=== PATIENT | male | born 1995 | race American Indian/Alaskan Native ===

== ENCOUNTER 2021-08-28 14:39 | Emergency (ER) | payer SELFPAY ==
[2021-08-28] MEDS ORDERED: ONDANSETRON 4 MG/2 ML INJ IV ONE (14:52)
[2021-08-28] MEDS ORDERED: SODIUM CHLORIDE 0.9% 500 ML 500 ML IV ONE (14:52)
[2021-08-28] MEDS ORDERED: MORPHINE 4 MG/1 ML INJ IV ONE ×2 (14:52→16:42)
[2021-08-28] MEDS ORDERED: SODIUM CHLORIDE 0.9% IRR 500 ML BOTTLE IR ONE (14:53)
[2021-08-28] MEDS ORDERED: LIDOCAINE 2%/EPINEPHRINE 1:100,000 VIAL (20 ML) INFILTRATI ONE (14:53)
--- NOTE | 2021-08-28 14:54 | Emergency Department Report ---
ED General Adult HPI - General Chief complaint: Multiple Trauma Stated complaint: HEAD INJURY Time Seen by Provider: 08/28/21 14:51 Source: patient, family, RN notes reviewed Mode of arrival: Ambulatory Limitations: Physical Limitation - History of Present Illness Initial comments: The patient is a 26-year-old gentleman. He is not known to myself previously. He presents to the ER with a complaint of pipe injury to the head, while at work. He apparently blacked out afterwards. History obtained from patient and from his mother. 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 Apparently he fell backwards and hit his head. He passed out. Prior to the event, the patient does not have any pain or complaints. The patient complains of frontal headache, neck pain, and nausea and vomiting. He denies weakness and numbness. Code trauma is called overhead based off of mechanism. Airway: Patent and intact Breath sounds: Clear to auscultation bilaterally. Circulation: 2+ pulses noted in the bilateral upper and lower extremities. Blood pressure 120 systolic. Disability: GCS 13-14. Clinically sober. Exposure: No other obvious significant injuries. Secondary survey: Right-sided forehead laceration noted -: Sudden Location: head Consistency: constant Improves with: none Worsens with: none - Related Data Previous Rx's Medication Instructions Recorded Last Taken Type Acetaminophen [Non-Aspirin Extra 500 mg PO Q6HR PRN #30 tablet 08/28/21 Unknown Rx Strength] Fluticasone [Flonase] 1 spray NS QDAY #1 bottle 08/28/21 Unknown Rx Ibuprofen [Motrin] 600 mg PO Q8H PRN #30 tablet 08/28/21 Unknown Rx Ondansetron [Zofran Odt] 4 mg PO Q8HR PRN #20 tab.rapdis 08/28/21 Unknown Rx cephALEXin [Keflex] 500 mg PO Q6HR #20 capsule 08/28/21 Unknown Rx Allergies Allergy/AdvReac Type Severity Reaction Status Date / Time shellfish derived AdvReac Anaphylaxis Verified 08/28/21 14:43 ED Review of Systems ROS: Stated complaint: HEAD INJURY Other details as noted in HPI Constitutional: malaise. denies: fever Eyes: denies: eye discharge ENT: denies: epistaxis Respiratory: denies: cough Cardiovascular: syncope. denies: chest pain Gastrointestinal: nausea, vomiting. denies: abdominal pain Musculoskeletal: myalgia Neurological: headache, weakness. denies: numbness Psychiatric: anxiety ED Past Medical Hx - Medications Home Medications: Home Medications Medication Instructions Recorded Confirmed Last Taken Type Acetaminophen [Non-Aspirin Extra 500 mg PO Q6HR PRN #30 tablet 08/28/21 Unknown Rx Strength] Fluticasone [Flonase] 1 spray NS QDAY #1 bottle 08/28/21 Unknown Rx Ibuprofen [Motrin] 600 mg PO Q8H PRN #30 tablet 08/28/21 Unknown Rx Ondansetron [Zofran Odt] 4 mg PO Q8HR PRN #20 tab.rapdis 08/28/21 Unknown Rx cephALEXin [Keflex] 500 mg PO Q6HR #20 capsule 08/28/21 Unknown Rx ED Physical Exam - General Limitations: Physical Limitation General appearance: alert, anxious - Head Head exam: Present: normocephalic (There is a right-sided facial linear skin avulsion.), other (There is a right-sided lateral forehead laceration, approximately 2 cm) - Eye Eye exam: Present: normal appearance, PERRL, EOMI. Absent: nystagmus - ENT ENT exam: Present: normal exam, normal orophraynx, mucous membranes moist, normal external ear exam - Neck Neck exam: Present: normal inspection. Absent: tenderness, meningismus - Respiratory Respiratory exam: Present: normal lung sounds bilaterally. Absent: respiratory distress, wheezes, rales, rhonchi, stridor, decreased breath sounds - Cardiovascular Cardiovascular Exam: Present: normal rhythm, bradycardia, normal heart sounds. Absent: tachycardia, irregular rhythm, systolic murmur, diastolic murmur, rubs, gallop - GI/Abdominal GI/Abdominal exam: Present: soft. Absent: distended, tenderness, guarding, rebound, rigid, pulsatile mass - Rectal Rectal exam: Present: normal inspection, normal rectal tone - exam: Present: normal inspection External exam: Present: normal external exam - Extremities Exam Extremities exam: Present: normal inspection, full ROM, other (2+ pulses noted in the bilateral upper and lower extremities. There is no palpable cord. negative Homans sign. Muscular compartments are soft. The pelvis is stable.). Absent: pedal edema, calf tenderness - Back Exam Back exam: Present: normal inspection, CVA tenderness (R). Absent: tenderness, CVA tenderness (L), paraspinal tenderness, vertebral tenderness - Neurological Exam Neurological exam: Present: alert, other (No facial droop. Tongue midline. Extraocular movements intact bilaterally. Facial sensation intact to light touch in V1, V2, V3 distribution bilaterally. 5 and a 5 strength in 4 extremities. Sensation intact to light touch in 4 extremities.) - Psychiatric Psychiatric exam: Present: anxious - Skin Skin exam: Present: warm, other (Right forehead laceration) ED Course Vital Signs 08/28/21 08/28/21 08/28/21 14:52 15:00 15:16 Temperature Pulse Rate 43 L 54 L 45 L Respiratory 16 11 L 21 Rate Blood Pressure 155/75 162/84 O2 Sat by Pulse 98 99 99 Oximetry O2 Sat by Pulse Oximetry [ Digit-Finger] 08/28/21 08/28/21 08/28/21 15:30 15:46 16:00 Temperature Pulse Rate 41 L 48 L 46 L Respiratory 13 18 15 Rate Blood Pressure 146/75 128/77 138/71 O2 Sat by Pulse 100 99 Oximetry O2 Sat by Pulse Oximetry [ Digit-Finger] 08/28/21 08/28/21 16:13 16:35 Temperature 98 F Pulse Rate Respiratory Rate Blood Pressure O2 Sat by Pulse Oximetry O2 Sat by Pulse 98 Oximetry [ Digit-Finger] - Reevaluation(s) Reevaluation #1: 08/28/21 15:38 Differential diagnosis, including but not limited to: Forehead laceration, in tracranial injury, concussion, facial bone injury, cervical sprain, cervical strain, fracture dislocation Assessment and plan: 26-year-old gentleman, who is afebrile with reassuring vital signs, clinically sober, status post significant blunt trauma to the face. He is very symptomatic, with nausea and vomiting. Suspect concussion. Cannot clear cervical spine. Collar placed during initial primary survey. CT scan of the brain, facial bones and cervical spine will be obtained. The patient stated he is up-to-date on tetanus vaccination. Bradycardia reviewed and appreciated, patient young and appears very fit, this is likely physiologic. Blood pressure is acceptable. We will repair his facial laceration. I discussed this with his mother. She articulated understanding. Laboratory studies pending. Noncontrast CT scan of the brain, facial bones and cervical spine pending. 08/28/21 16:47 CT scan of the brain, cervical spine negative for acute findings. CT scan of the facial bones demonstrates depressed right-sided zygomatic arch fracture. Contacted [facility] on-call, Dr. Roa. Discussed history, physical, laboratory studies and imaging studies. He advises supportive care, outpatient follow-up, nasal precautions. We will cover empirically with antibiotics as well. Extensive discussion had with patient family and significant other. Discussed need to follow-up with Worker's Compensation physician and ENT/oral surgery. Also discussed natural history of concussion. All questions answered. Return precautions reviewed - Laceration /Wound Repair Right Lateral Face Wound Location: face Wound Length (cm): 2 Wound's Depth, Shape: into muscle, linear, contused tissue Wound Explored: clean Irrigated w/ Saline (ccs): 400 Betadine Prep?: No Anesthesia: 1% Lidocaine Volume Anesthetic (ccs): 4 Wound Debrided: minimal Wound Repaired With: sutures Suture Size/Type: 5:0 (Monofilament, interrupted, nonabsorbable) Number of Sutures: 4 Layer Closure?: No Sterile Dressing Applied?: Yes - Pulse Oximetry Interpretation Digit-Finger Initial Pulse Oximetry Readin O2 Sat by Pulse Oximetry: 98 Actions Taken: none ED Medical Decision Making - Lab Data Result diagrams: 08/28/21 14:54 08/28/21 14:54 Lab Results 08/28/21 08/28/21 08/28/21 Range/Units 14:54 14:54 14:54 WBC 8.9 (4.5-11.0) K/mm3 RBC 6.23 H (3.65-5.03) M/mm3 Hgb 12.9 (11.8-15.2) gm/dl Hct 42.0 (35.5-45.6) % MCV 67 L (84-94) fl MCH 21 L (28-32) pg MCHC 31 L (32-34) % RDW 17.8 H (13.2-15.2) % Plt Count 308 (140-440) K/mm3 Lymph % (Auto) 24.0 (13.4-35.0) % Hettinger % (Auto) 12.1 H (0.0-7.3) % Eos % (Auto) 1.3 (0.0-4.3) % Baso % (Auto) 0.5 (0.0-1.8) % Lymph # (Auto) 2.1 (1.2-5.4) K/mm3 Hettinger # (Auto) 1.1 H (0.0-0.8) K/mm3 Eos # (Auto) 0.1 (0.0-0.4) K/mm3 Baso # (Auto) 0.0 (0.0-0.1) K/mm3 Seg Neutrophils % 62.1 (40.0-70.0) % Seg Neutrophils # 5.5 (1.8-7.7) K/mm3 PT 13.3 (12.2-14.9) Sec. INR 0.91 (0.87-1.13) APTT 28.2 (24.2-36.6) Sec. Sodium 134 L (137-145) mmol/L Potassium TNR Chloride 100.8 (98-107) mmol/L Carbon Dioxide 19 L (22-30) mmol/L Anion Gap 20 mmol/L BUN 13 (9-20) mg/dL Creatinine 0.7 L (0.8-1.3) mg/dL Estimated GFR > 60 ml/min BUN/Creatinine Ratio 19 % Glucose 105 H (75-100) mg/dL Calcium 9.6 (8.4-10.2) mg/dL Total Bilirubin 0.90 (0.1-1.2) mg/dL AST 77 H (5-40) units/L ALT 24 (7-56) units/L Alkaline Phosphatase 54 (35-129) units/L Total Protein 8.4 H (6.3-8.2) g/dL Albumin 4.8 (3.9-5) g/dL Albumin/Globulin Ratio 1.3 % Plasma/Serum Alcohol (0-0.07) % 08/28/21 Range/Units 14:54 WBC (4.5-11.0) K/mm3 RBC (3.65-5.03) M/mm3 Hgb (11.8-15.2) gm/dl Hct (35.5-45.6) % MCV (84-94) fl MCH (28-32) pg MCHC (32-34) % RDW (13.2-15.2) % Plt Count (140-440) K/mm3 Lymph % (Auto) (13.4-35.0) % Hettinger % (Auto) (0.0-7.3) % Eos % (Auto) (0.0-4.3) % Baso % (Auto) (0.0-1.8) % Lymph # (Auto) (1.2-5.4) K/mm3 Hettinger # (Auto) (0.0-0.8) K/mm3 Eos # (Auto) (0.0-0.4) K/mm3 Baso # (Auto) (0.0-0.1) K/mm3 Seg Neutrophils % (40.0-70.0) % Seg Neutrophils # (1.8-7.7) K/mm3 PT (12.2-14.9) Sec. INR (0.87-1.13) APTT (24.2-36.6) Sec. Sodium (137-145) mmol/L Potassium Chloride (98-107) mmol/L Carbon Dioxide (22-30) mmol/L Anion Gap mmol/L BUN (9-20) mg/dL Creatinine (0.8-1.3) mg/dL Estimated GFR ml/min BUN/Creatinine Ratio % Glucose (75-100) mg/dL Calcium (8.4-10.2) mg/dL Total Bilirubin (0.1-1.2) mg/dL AST (5-40) units/L ALT (7-56) units/L Alkaline Phosphatase (35-129) units/L Total Protein (6.3-8.2) g/dL Albumin (3.9-5) g/dL Albumin/Globulin Ratio % Plasma/Serum Alcohol < 0.01 (0-0.07) % - EKG Data -: EKG Interpreted by Nv EKG shows normal: sinus rhythm Rate: bradycardia - EKG Data When compared to previous EKG there are: previous EKG unavailable 08/28/21 16:11 EKG is interpreted at 15: 44 Bradycardia, sinus rhythm, 45 bpm. Normal axis, normal P wave axis, high left ventricular voltage. Early repolarization. Abnormal EKG. Not a STEMI. - Radiology Data Radiology results: pending, report reviewed, image reviewed CT MAXILLOFACIAL WITHOUT CONTRAST INDICATION / CLINICAL INFORMATION: Trauma. TECHNIQUE: All CT scans at this location are performed using CT dose reduction for ALARA by means of automated exposure control. COMPARISON: None available. FINDINGS: FACIAL BONES: There are not fractures involving right sacrum attic arch with 2-3 mm of depression posteriorly at. There is extensive edema involving the right superficial facial and temporal soft tissues at. The motion and positioning degrade the image quality. However, the orbital fernandez and sinuses appear intact. PARANASAL SINUSES: There is minimal mucosal thickening within the maxillary and ethmoid sinuses at. No significant air-fluid levels are identified. There is mild deviation of the nasal septum toward the left. ORBITS: The optic globes appear to demonstrate appropriate size and configuration. There is no clear evidence of significant post septal inflammatory changes. VISUALIZED INTRACRANIAL STRUCTURES: No significant abnormality. ADDITIONAL FINDINGS: None. IMPRESSION: 1. There is mildly depressed fracture involving the right zygomatic arch as detailed above. There is extensive edema involving the right superficial facial and temporal soft tissues. Signer Name: Jose Alberto Lopez MD Signed: 08/28/2021 3:05 PM Workstation Name: [email or web address] CT head/brain wo con INDICATION / CLINICAL INFORMATION: 26 years Male; Trauma, HIT HEAD. TECHNIQUE: Routine CT head without contrast. All CT scans at this location are performed using CT dose reduction for ALARA by means of automated exposure control. COMPARISON: None. FINDINGS: BRAIN / INTRACRANIAL CONTENTS: There is minimal mucosal thickening involving ethmoid and visualized maxillary sinuses.superficial temporal scalp. However, there is no clear CT evidence of acute intracranial hemorrhage or significant mass effect. ORBITS: No significant abnormality of visualized orbits. SINUSES / MASTOIDS: There is minimal mucosal thickening within the ethmoid and visualized maxillary sinuses. CRANIOCERVICAL JUNCTION: No significant abnormality. ADDITIONAL FINDINGS: There appears to be mildly displaced fracture involving the visualized right zygomatic arch. The maxillofacial CT will be dictated separately. IMPRESSION: 1. There is no CT evidence of acute intracranial process. 2. There appears be mild depressed fracture involving the visualized right zygomatic arch. The maxillof acial CT will be dictated separately. Signer Name: Jose Alberto Lopez MD Signed: 08/28/2021 2:59 PM Workstation Name: [email or web address] Critical care attestation.: If time is entered above; I have spent that time in minutes in the direct care of this critically ill patient, excluding procedure time. ED Disposition Clinical Impression: Facial laceration, Closed head injury, Concussion, Zygomatic arch fracture Disposition: 01 HOME / SELF CARE / HOMELESS Is pt being admited?: No Does the pt Need Aspirin: No Condition: Good Instructions: Head Injury, Adult, Zygoma Fracture, Concussion, Adult Additional Instructions: As we discussed, patient has a facial laceration, depressed right-sided zygomatic arch fracture, and concussion. The patient should not drive or operate motor vehicles until cleared to do so by a primary care doctor. Recommend follow-up with a primary care doctor or Worker's Compensation physician as an outpatient as soon as possible. Wash abrasions and facial abrasions with gentle soap and water once every 12-24 hours. Follow-up with an oral surgeon or ENT physician within the next 5 to 7 days for right-sided depressed zygomatic arch fracture. Take the pain medication and nausea medication as well as antibiotics as directed. Sutures should be taken out in 5 to 7 days. They can be taken out by a primary care doctor, urgent care center, ENT physician, or return to the emergency room. 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 Dr. Migue Colunga Is a local primary care doctor. Dr. Braden Contreras Is a local ENT physician. [facility] can be reached [place] [address] [address] Thursday - Thursday: 8 AM - 4:30 PM (Main) (Appointments) The patient most likely has a severe concussion. Symptoms of concussion will include dizziness, lightheadedness, nausea, confusion, ringing or buzzing sounds in the ears, sensitivity to light and sound. Patient may also feel forgetful and not himself. Patient may go to sleep. The patient should not participate in sports or athletics until cleared to do so by a primary care doctor. Please return to the emergency room right away with new pain, worsened pain, migration of pain, projectile vomiting, change in mental status, confusion, inability to tolerate liquid feeds, new, worsened or different symptoms not present on the initial ER evaluation Referrals: BRENT GIMENEZ MD [Staff Physician] - 3-5 Days MARTHA MONET MD [Referring] - 3-5 Days Forms: Work/School Release Form(ED)
[2021-08-28 15:01] LABS: Basophils % (Auto) 0.5 % (0.0-1.8); Eosinophils # (Auto) 0.1 K/mm3 (0.0-0.4); Eosinophils % (Auto) 1.3 % (0.0-4.3); Lymphocytes # (Auto) 2.1 K/mm3 (1.2-5.4); Mean Corpuscular HGB Conc 31 % (32-34); Monocytes # (Auto) 1.1 K/mm3 (0.0-0.8); Monocytes % (Auto) 12.1 % (0.0-7.3); Platelet Count 308 K/mm3 (140-440); Red Blood Count 6.23 M/mm3 (3.65-5.03); Red Cell Distribution Width 17.8 % (13.2-15.2)
[2021-08-28 15:13] LABS: Hemoglobin 12.9 gm/dl (11.8-15.2); INR 0.91 (0.87-1.13); Mean Corpuscular Volume 67 fl (84-94)
[2021-08-28 15:14] LABS: Partial Thromboplastin Time 28.2 Sec. (24.2-36.6)
[2021-08-28 15:17] LABS: Alanine Aminotransferase 24 units/L (7-56); Albumin 4.8 g/dL (3.9-5); BUN/Creatinine Ratio 19; Blood Urea Nitrogen 13 mg/dL (9-20); Calcium 9.6 mg/dL (8.4-10.2); Hemolysis Index 182
--- NOTE | 2021-08-28 16:04 | Cat Scan Report ---
CT head/brain wo con INDICATION / CLINICAL INFORMATION: 26 years Male; Trauma, HIT HEAD. TECHNIQUE: Routine CT head without contrast. All CT scans at this location are performed using CT dos e reduction for ALARA by means of automated exposure control. COMPARISON: None. FINDINGS: BRAIN / INTRACRANIAL CONTENTS: There is minimal mucosal thickening involving ethmoid and visualized m axillary sinuses.superficial temporal scalp. However, there is no clear CT evidence of acute intracra nial hemorrhage or significant mass effect. ORBITS: No significant abnormality of visualized orbits. SINUSES / MASTOIDS: There is minimal mucosal thickening within the ethmoid and visualized maxillary s inuses. CRANIOCERVICAL JUNCTION: No significant abnormality. ADDITIONAL FINDINGS: There appears to be mildly displaced fracture involving the visualized right zyg omatic arch. The maxillofacial CT will be dictated separately. IMPRESSION: 1. There is no CT evidence of acute intracranial process. 2. There appears be mild depressed fracture involving the visualized right zygomatic arch. The maxill ofacial CT will be dictated separately. Signer Name: Jose Alberto Lopez MD Signed: 08/28/2021 3:59 PM Workstation Name: [id number]
--- NOTE | 2021-08-28 16:09 | Cat Scan Report ---
CT MAXILLOFACIAL WITHOUT CONTRAST INDICATION / CLINICAL INFORMATION: Trauma. TECHNIQUE: All CT scans at this location are performed using CT dose reduction for ALARA by means of automated e xposure control. COMPARISON: None available. FINDINGS: FACIAL BONES: There are not fractures involving right sacrum attic arch with 2-3 mm of depression pos teriorly at. There is extensive edema involving the right superficial facial and temporal soft tissue s at. The motion and positioning degrade the image quality. However, the orbital fernandez and sinuses ap pear intact. PARANASAL SINUSES: There is minimal mucosal thickening within the maxillary and ethmoid sinuses at. N o significant air-fluid levels are identified. There is mild deviation of the nasal septum toward the left. ORBITS: The optic globes appear to demonstrate appropriate size and configuration. There is no clear evidence of significant post septal inflammatory changes. VISUALIZED INTRACRANIAL STRUCTURES: No significant abnormality. ADDITIONAL FINDINGS: None. IMPRESSION: 1. There is mildly depressed fracture involving the right zygomatic arch as detailed above. There i s extensive edema involving the right superficial facial and temporal soft tissues. Signer Name: Jose Alberto Lopez MD Signed: 08/28/2021 4:05 PM Workstation Name: [id number]
[2021-08-28] MEDS ORDERED: BACITRACIN ZINC OINT 28.4 GM TP STA (16:12)
--- NOTE | 2021-08-28 16:12 | Cat Scan Report ---
Exam: CT cervical spine History: Trauma; Technique: Contiguous thin cut axial images obtained through the cervical spine. Sagittal and lu l reconstructions performed by the technologist. All CT scans at this location are performed using CT dose reduction for ALARA by means of automated exposure control. Findings: No priors. There is no evidence of fracture or traumatic subluxation. Vertebral bodies are normal in height and alignment. Intervertebral disc spaces are well-maintained. No significant degenerative change seen in the uncinate or facet joints. No significant canal stenosi s or osseous foraminal narrowing. Surrounding soft tissues are grossly normal. Impression: No signs of acute bony trauma to the cervical spine. Signer Name: Janis Blair MD Signed: 08/28/2021 4:07 PM Workstation Name: [id number]
[2021-08-28] MEDS ORDERED: NEOMY 3.5 MG/BACIT 400 UNITS/POLY B 5000 UNITS/GM OINT PACKET TP ONE (16:28)
[2021-08-28] MEDS ORDERED: KETOROLAC 30 MG/1 ML INJ IV ONE (16:42)
[2021-08-28 18:08] VITALS: BP 131/71
--- NOTE | 2021-08-29 10:44 | Electrocardiograph Report ---
[facility] Test Date: 2021-08-28 Test Time: 15:44:39 Pat Name: ESTRELLA KEY Department: Room: Gender: M Manager Mechanical: ALEXANDER : 1995 Requested By: MEEK BARRIOS Order Number: [id number] Reading MD: Antony Roe Measurements Intervals [place] Rate: 45 P: 77 CA: 166 QRS: 63 QRSD: 94 T: 71 QT: 429 QTc: 371 Interpretive Statements Bradycardia with irregular rate ST elev, probable normal early repol pattern No previous ECG available for comparison Electronically Signed On 08-29-2021 10:43:47 EST by Antony Roe
== END 2021-08-28 18:16 | disposition home or self-care (01) ==
LOC: ED 14:39
DX: S06.0X0A Concussion without loss of consciousness, initial encounter (principal); S02.40EA Zygomatic fracture, right side, initial encounter for closed fracture; S01.81XA Laceration without foreign body of other part of head, initial encounter; Z91.013 Allergy to seafood; Z79.899 Other long term (current) drug therapy; W22.8XXA Striking against or struck by other objects, initial encounter; Y93.89 Activity, other specified; Y92.89 Other specified places as the place of occurrence of the external cause; Y99.8 Other external cause status
CPT/HCPCS: 12011; 36415; 70450; 70486; 72125; 80053; 85025; 85610; 85730; 93005; 96361; 96374; 96375; 96376; 99284; J1885; J2270; J2405; J3490; J7040; 80320; G0480